=== PATIENT | male | born 1995 | race Asian ===

== ENCOUNTER 2024-09-23 06:22 | Outpatient (REF) | payer OTHER, SELFPAY ==
--- NOTE | ~2024-09-23 | US_ITS ---
EXAMINATION: US SCROTUM HISTORY: HEMATURIA, LEFT SCROTAL PAIN. COMPARISONS: There are no prior studies for comparison. FINDINGS: Real-time grayscale ultrasound imaging of the scrotum was performed. RIGHT TESTICLE: The right testis measures 4.1 x 1.7 x 2.8 cm and demonstrates normal homogeneous echotexture. No masses are seen. The right testis demonstrates normal color Doppler flow. RIGHT EPIDIDYMIS: Normal in size, shape, and vascularity. LEFT TESTICLE: The left testis measures 4.4 x 2.1 x 2.3 cm and demonstrates normal homogeneous echotexture. No masses are seen. The left testis demonstrates normal color Doppler flow. LEFT EPIDIDYMIS: Normal in size, shape, and vascularity. VARICOCELE: There are mildly dilated vessels in the left inguinal canal, consistent with a varicocele. HYDROCELE: No significant hydrocele is seen. OTHER COMMENTS: Color and spectral arterial and venous Doppler wave forms in both testes are normal. US/US scrotum IMPRESSION: Left varicocele. Otherwise unremarkable scrotal ultrasound. Electronically signed by: Mickey Ivey MD 09/23/2024 03:29 PM [facility] [place]
--- NOTE | ~2024-09-23 | US_ITS ---
EXAMINATION: US KIDNEY BILATERAL HISTORY: HEMATURIA, LEFT TESTICULAR PAIN TECHNIQUE: Real-time grayscale ultrasound imaging of the kidneys was performed and images were reviewed. COMPARISON: There are no prior studies for comparison. FINDINGS: Right kidney: The right kidney measures 10.9 x 4.1 x 5.4 cm. Renal parenchymal echotexture and thickness are normal. There are no masses. There is no hydronephrosis or renal calculi. Left Kidney: The left kidney measures 10.5 x 5.3 x 3.7 cm. Renal parenchymal echotexture and thickness are normal. There are no masses. There is no hydronephrosis or renal calculi. US/US renal BI IMPRESSION: Unremarkable renal ultrasound. Electronically signed by: Mickey Ivey MD 09/23/2024 03:24 PM [facility]
== END 2024-09-23 06:23 | disposition home or self-care (01) ==
LOC: HO.UMASIMG 06:22
PROVIDERS: Visit Provider Physician Assistant Medical
DX: R30.0 Dysuria (principal); N50.812 Left testicular pain
CPT/HCPCS: 76775; 76870

== ENCOUNTER → 2024-09-23 14:30 | Outpatient (BNV) | payer OTHER, SELFPAY | PROVIDERS: Visit Provider Radiology Diagnostic Radiology | DX: I86.1 Scrotal varices (principal); R31.9 Hematuria, unspecified | CPT/HCPCS: 76775; 76870 ==